=== PATIENT | male | born 1965 | race Two or more races ===

== ENCOUNTER → 2020-01-18 13:45 | Outpatient (BNVA) | payer OTHER, SELFPAY | PROVIDERS: Visit Provider Physician Assistant Medical | DX: S63.501A Unspecified sprain of right wrist, initial encounter (principal); X50.1XXA Overexertion from prolonged static or awkward postures, initial encounter | CPT/HCPCS: 29125; 99202 ==

== ENCOUNTER → 2020-01-21 08:33 | Outpatient (BNVA) | payer OTHER, SELFPAY | PROVIDERS: Visit Provider Physician Assistant Medical | DX: S63.501D Unspecified sprain of right wrist, subsequent encounter (principal) | CPT/HCPCS: 73110; 73130; 99214 ==

== ENCOUNTER 2020-02-05 10:00 | Outpatient (RCR) | payer OTHER, SELFPAY | END 2020-03-24 08:46 | disposition home or self-care (01) | LOC: HO.OT 10:00 | PROVIDERS: Visit Provider Physician Assistant Medical | DX: S63.501D Unspecified sprain of right wrist, subsequent encounter (principal) | CPT/HCPCS: 97035; 97110; 97165; 99213 ==

== ENCOUNTER → 2020-02-18 08:57 | Outpatient (BNVA) | payer OTHER, SELFPAY | PROVIDERS: Visit Provider Physician Assistant Medical | DX: S63.501D Unspecified sprain of right wrist, subsequent encounter (principal); X58.XXXD Exposure to other specified factors, subsequent encounter | CPT/HCPCS: 99213 ==

== ENCOUNTER 2020-03-02 08:51 | Outpatient (REF) | payer OTHER, SELFPAY ==
--- NOTE | 2020-03-02 09:01 | XR_ITS ---
EXAMINATION: XR WRIST, RIGHT CLINICAL INFORMATION: Pain right wrist. COMPARISON: None TECHNIQUE: PA, lateral, and oblique views of the right wrist. FINDINGS: The bones and soft tissues are normal. No fracture. Alignment is anatomic with normal joint spaces. No erosions or abnormal soft tissue calcifications. XR/XR wrist RT min 3V IMPRESSION: Unremarkable right wrist exam.
== END 2020-03-02 08:52 | disposition home or self-care (01) ==
LOC: HO.HOSX 08:51
PROVIDERS: Visit Provider Orthopaedic Surgery
DX: M25.531 Pain in right wrist (principal); M77.8 Other enthesopathies, not elsewhere classified
CPT/HCPCS: 73110; 99202

== ENCOUNTER → 2020-03-15 15:22 | Outpatient (BNVA) | payer OTHER, SELFPAY | PROVIDERS: Visit Provider Internal Medicine | DX: S63.501D Unspecified sprain of right wrist, subsequent encounter (principal); X58.XXXD Exposure to other specified factors, subsequent encounter; M67.833 Other specified disorders of tendon, right wrist | CPT/HCPCS: 99213 ==

== ENCOUNTER → 2020-03-29 15:00 | Outpatient (BNVA) | payer OTHER, SELFPAY | PROVIDERS: Visit Provider Physician Assistant Medical | DX: S63.501D Unspecified sprain of right wrist, subsequent encounter (principal); X58.XXXD Exposure to other specified factors, subsequent encounter; M67.833 Other specified disorders of tendon, right wrist | CPT/HCPCS: 99213 ==

== ENCOUNTER → 2020-07-05 08:33 | Outpatient (BNVA) | payer OTHER, SELFPAY | PROVIDERS: Visit Provider Internal Medicine | DX: S97.111A Crushing injury of right great toe, initial encounter (principal); S97.121A Crushing injury of right lesser toe(s), initial encounter; W20.8XXA Other cause of strike by thrown, projected or falling object, initial encounter | CPT/HCPCS: 73630; 99203 ==

== ENCOUNTER → 2020-07-08 10:00 | Outpatient (BNVA) | payer OTHER, SELFPAY | PROVIDERS: Visit Provider Internal Medicine | DX: S97.111A Crushing injury of right great toe, initial encounter (principal); S97.121A Crushing injury of right lesser toe(s), initial encounter; W20.8XXA Other cause of strike by thrown, projected or falling object, initial encounter | CPT/HCPCS: 12001; 99213 ==

== ENCOUNTER → 2020-07-12 13:54 | Outpatient (BNVA) | payer OTHER, SELFPAY | PROVIDERS: Visit Provider Physician Assistant | DX: S97.81XA Crushing injury of right foot, initial encounter (principal); X58.XXXA Exposure to other specified factors, initial encounter | CPT/HCPCS: 99213 ==